=== PATIENT | female | born 2000 | race American Indian/Alaskan Native ===

== ENCOUNTER 2021-02-14 13:06 | Emergency (ER) | payer MEDICAID, OTHER ==
[2021-02-14 15:27] VITALS: BP 116/74
--- NOTE | 2021-02-14 16:00 | Emergency Department Report ---
ED Lower Extremity HPI - General Chief Complaint: Extremity Injury, Lower Stated Complaint: RTLEG PAINS Time Seen by Provider: 02/14/21 15:58 Source: patient Mode of arrival: Ambulatory Limitations: No Limitations - History of Present Illness Initial Comments: Patient is a 20-year-old female presents emergency room with complaints of right thigh pain that occurred yesterday. She states that a shelf was sticking out and she ran into it in a head against her right thigh. She states since then she has had some pain and bruising there. She is ambulatory. She denies any numbness or weakness. She denies ever injuring in the past. No past medical history. No allergies to medications. - Related Data Previous Rx's Medication Instructions Recorded Last Taken Type Ibuprofen [Motrin] 600 mg PO Q8H #30 tablet 05/20/18 Unknown Rx Ofloxacin 0.3% [Floxin 0.3% Otic] 1 applic OT BID #1 bottle 05/20/18 Unknown Rx Allergies Allergy/AdvReac Type Severity Reaction Status Date / Time No Known Allergies Allergy Unverified 05/20/18 10:08 ED Review of Systems ROS: Stated complaint: RTLEG PAINS Other details as noted in HPI Comment: All other systems reviewed and negative ED Past Medical Hx - Past Medical History Previous Medical History?: No - Social History Smoking Status: Never Smoker Substance Use Type: None - Medications Home Medications: Home Medications Medication Instructions Recorded Confirmed Last Taken Type Ibuprofen [Motrin] 600 mg PO Q8H #30 tablet 05/20/18 Unknown Rx Ofloxacin 0.3% [Floxin 0.3% Otic] 1 applic OT BID #1 bottle 05/20/18 Unknown Rx ED Physical Exam - General Limitations: No Limitations General appearance: alert, in no apparent distress - Head Head exam: Present: atraumatic, normocephalic - Eye Eye exam: Present: normal appearance - ENT ENT exam: Present: mucous membranes moist - Respiratory Respiratory exam: Absent: respiratory distress, accessory muscle use - Extremities Exam Extremities exam: Present: other (department editor: MONI melvin, there is a 3 cm area of ecchymosis present to the right lateral thigh, no bony ttp of the RLE, FROM of the RLE, no deformity, neurovascularly intact) - Neurological Exam Neurological exam: Present: alert, oriented X3 - Psychiatric Psychiatric exam: Present: normal affect, normal mood - Skin Skin exam: Present: warm, dry ED Course Vital Signs 02/14/21 15:26 Temperature 99.6 F Pulse Rate 76 Respiratory 18 Rate Blood Pressure 116/74 O2 Sat by Pulse 100 Oximetry ED Lower Extremity MDM - Medical Decision Making Patient is a 20-year-old female presents emergency room with complaints of right thigh pain that occurred yesterday. She states that a shelf was sticking out and she ran into it in a head against her right thigh. She states since then she has had some pain and bruising there. She is ambulatory. She denies any numbness or weakness. She denies ever injuring in the past. No past medical history. No allergies to medications. vitals are normal. on exam: department editor: MONI melvin, there is a 3 cm area of ecchymosis present to the right lateral thigh, no bony ttp of the RLE, FROM of the RLE, no deformity, neurovascularly intact. Examination appears consistent with thigh contusion. Advised patient May take Tylenol as needed for pain. Please use ice for 15 minutes at a time, rest, Epsom salt bath. Follow-up with your primary care doctor for reexamination. Return to emergency room for any new or worse symptoms. Critical care attestation.: If time is entered above; I have spent that time in minutes in the direct care of this critically ill patient, excluding procedure time. ED Disposition Clinical Impression: Contusion of right thigh Qualifiers: Encounter type: initial encounter Qualified Code(s): S70.11XA - Contusion of right thigh, initial encounter Disposition: -01 TO HOME OR SELFCARE Is pt being admited?: No Does the pt Need Aspirin: No Condition: Stable Instructions: Contusion, [id number] Additional Instructions: May take Tylenol as needed for pain. Please use ice for 15 minutes at a time, rest, Epsom salt bath. Follow-up with your primary care doctor for reexamination. Return to emergency room for any new or worse symptoms. Referrals: your, primary care doctor [Other] - 2-3 Days Forms: Work/School Release Form(ED) Time of Disposition: 16:00 Print Language: LUX[place]BOURGISH
== END 2021-02-14 16:55 | disposition home or self-care (01) ==
LOC: ED 13:06
DX: S70.11XA Contusion of right thigh, initial encounter (principal); Z79.899 Other long term (current) drug therapy; X58.XXXA Exposure to other specified factors, initial encounter; Y93.89 Activity, other specified; Y92.89 Other specified places as the place of occurrence of the external cause; Y99.8 Other external cause status
CPT/HCPCS: 99281

== ENCOUNTER 2022-03-18 16:32 | Emergency (ER) | payer SELFPAY ==
[2022-03-18] MEDS ORDERED: SODIUM CHLORIDE 0.9% 1000 ML 1,000 ML IV ONE ×2 (17:21→20:10)
[2022-03-18] MEDS ORDERED: ONDANSETRON 4 MG/2 ML INJ IV ONE (17:21)
[2022-03-18 17:22] LABS: Basophils % (Auto) 0.5 % (0.0-1.8); Hematocrit 37.8 % (30.3-42.9); Hemoglobin 12.5 gm/dl (10.1-14.3); Lymphocytes # (Auto) 0.8 K/mm3 (1.2-5.4); Lymphocytes % (Auto) 12.6 % (13.4-35.0); Mean Corpuscular HGB Conc 33 % (30-34); Mean Corpuscular Volume 86 fl (79-97); Monocytes # (Auto) 0.1 K/mm3 (0.0-0.8); Monocytes % (Auto) 1.6 % (0.0-7.3); Platelet Count 390 K/mm3 (140-440); Red Blood Count 4.42 M/mm3 (3.65-5.03); Red Cell Distribution Width 16.2 % (13.2-15.2)
--- NOTE | 2022-03-18 17:26 | Emergency Department Report ---
<CRISTIANO TINOCO - Last Filed: 03/18/22 21:09> ED Psych HPI - General Chief Complaint: Overdose Stated Complaint: SI Time Seen by Provider: 03/18/22 16:54 Source: patient Mode of arrival: Ambulatory - History of Present Illness Initial Comments: 22-year-old female complaining of nausea, vomiting, dry mouth, and sleepiness after an intentional overdose on greater than 60 pills (hydroxyzine, trazodone, and Wellbutrin) which she says she took last night at 10 PM. Patient states that she also took a large bottle of karina. Patient endorses depression and "just wanting to sleep". Patient has been symptomatic all day today. Patient has a history of self-inflicted wounds, but denies previous suicide attempt. - Related Data Previous Rx's Medication Instructions Recorded Last Taken Type Ibuprofen [Motrin] 600 mg PO Q8H #30 tablet 05/20/18 Unknown Rx Ofloxacin 0.3% [Floxin 0.3% Otic] 1 applic OT BID #1 bottle 05/20/18 Unknown Rx Allergies Allergy/AdvReac Type Severity Reaction Status Date / Time No Known Allergies Allergy Verified 03/18/22 17:53 ED Review of Systems Comment: All other systems reviewed and negative Constitutional: denies: chills, fever, weakness Eyes: denies: eye pain, eye discharge, vision change ENT: other (Dry mouth). denies: ear pain, throat pain Respiratory: denies: cough, shortness of breath, wheezing Cardiovascular: denies: chest pain, palpitations Endocrine: no symptoms reported, increased thirst Gastrointestinal: vomiting. denies: abdominal pain, nausea, diarrhea Genitourinary: denies: urgency, dysuria, discharge Musculoskeletal: denies: back pain, joint swelling, arthralgia Skin: denies: rash, lesions Neurological: denies: headache, weakness, paresthesias Psychiatric: denies: anxiety, depression Hematological/Lymphatic: denies: easy bleeding, easy bruising ED Past Medical Hx - Past Medical History Hx Psychiatric Treatment: Yes (depression, anxiety) - Social History Smoking Status: Never Smoker Substance Use Type: None - Medications Home Medications: Home Medications Medication Instructions Recorded Confirmed Last Taken Type Ibuprofen [Motrin] 600 mg PO Q8H #30 tablet 05/20/18 Unknown Rx Ofloxacin 0.3% [Floxin 0.3% Otic] 1 applic OT BID #1 bottle 05/20/18 Unknown Rx ED Physical Exam - General Limitations: No Limitations General appearance: alert, in no apparent distress - Head Head exam: Present: atraumatic, normocephalic - Eye Eye exam: Present: normal appearance, PERRL, EOMI - ENT ENT exam: Present: mucous membranes moist - Neck Neck exam: Present: normal inspection - Respiratory Respiratory exam: Present: normal lung sounds bilaterally. Absent: respiratory distress, rales, chest wall tenderness, decreased breath sounds - Cardiovascular Cardiovascular Exam: Present: normal rhythm, tachycardia. Absent: systolic murmur, diastolic murmur, rubs, gallop - GI/Abdominal GI/Abdominal exam: Present: soft, normal bowel sounds. Absent: distended, tenderness, guarding - Extremities Exam Extremities exam: Present: normal inspection - Back Exam Back exam: Present: normal inspection - Neurological Exam Neurological exam: Present: alert, oriented X3, CN II-XII intact, normal gait, motor sensory deficit - Psychiatric Psychiatric exam: Present: depressed, suicidal ideation. Absent: flat affect, manic, homicidal ideation - Skin Skin exam: Present: warm, dry, intact, normal color, other (Old, well-healed scars to left wrist from self-inflicted cutting wounds). Absent: rash ED Course - Reevaluation(s) Reevaluation #1: Patient is now spoke to poison control 1740 p.m. and got the following recommendations: TRAZODONE 6-8 HOURS OBS WELLBUTRIN 23 HOURS OBS CHECK ELECTROLYTES; ASA; TYLENOL; ETOH; UDS EKG- CHECK FOR QRS <100 (CALL BACK IF SO), QTC. REPEAT EKG IN 2 HOURS WATCH FOR DELAYED SEIZURES WITHIN 23 HOURS BENZO'S FOR TREMORS/DELIRIUM/AGITATION SUPPORTIVE CARE Reevaluation #2: 03/18/22 20:19 Patient will be medically cleared at 9 PM, as I will be the 23-hour colt from her taking the overdose. Patient's blood work is unremarkable, patient is still alert and oriented, there has been no seizure activity, and patient is able to tolerate p.o., now. Reevaluation #3: 03/18/22 21:09 Patient is still moderately tachycardic when she moves, so will be monitored for two more hours. Care endorsed to Dr. Ibrahim ED Medical Decision Making - Lab Data Result diagrams: 03/18/22 16:50 03/18/22 16:50 - EKG Data Rate: tachycardia (Tachycardic at 112, with no prolonged QT) - EKG Data Interpretation: nonspecific ST-T wave sampson - Differential Diagnosis Depression, suicide attempt, malingering ED Disposition Clinical Impression: Suicide attempt Overdose Qualifiers: Encounter type: initial encounter Injury intent: intentional self-harm Qualified Code(s): T50.902A - Poisoning by unspecified drugs, medicaments and biological substances, intentional self-harm, initial encounter Disposition: 30 STILL A PATIENT Is pt being admited?: No Does the pt Need Aspirin: No Condition: Stable <JELANI IBRAHIM - Last Filed: 03/18/22 22:57> ED Review of Systems ROS: Stated complaint: SI Other details as noted in HPI ED Course Vital Signs 03/18/22 03/18/22 03/18/22 16:41 17:10 17:30 Temperature Pulse Rate 126 H 112 H Respiratory 18 Rate Blood Pressure Blood Pressure 106/88 130/84 [Left] O2 Sat by Pulse 97 97 99 Oximetry 03/18/22 03/18/22 03/18/22 17:40 18:10 18:50 Temperature Pulse Rate 108 H 110 H 107 H Respiratory Rate Blood Pressure Blood Pressure 112/62 114/68 112/65 [Left] O2 Sat by Pulse 96 97 98 Oximetry 03/18/22 03/18/22 03/18/22 19:27 19:28 19:30 Temperature 98.3 F Pulse Rate 106 H 112 H 102 H Respiratory 17 18 29 H Rate Blood Pressure 129/87 Blood Pressure 129/87 [Left] O2 Sat by Pulse 98 100 96 Oximetry 03/18/22 03/18/22 03/18/22 19:46 20:00 20:16 Temperature Pulse Rate 103 H 122 H 101 H Respiratory 25 H 18 31 H Rate Blood Pressure 129/87 136/85 136/85 Blood Pressure [Left] O2 Sat by Pulse 97 98 99 Oximetry 03/18/22 03/18/22 03/18/22 20:30 20:46 21:00 Temperature Pulse Rate 100 H 104 H 118 H Respiratory 19 13 25 H Rate Blood Pressure 110/68 110/68 112/69 Blood Pressure [Left] O2 Sat by Pulse 97 99 99 Oximetry 03/18/22 03/18/22 03/18/22 21:16 21:30 21:46 Temperature Pulse Rate 111 H 106 H 118 H Respiratory 16 18 13 Rate Blood Pressure 112/69 136/90 136/90 Blood Pressure [Left] O2 Sat by Pulse 99 98 98 Oximetry 03/18/22 03/18/22 03/18/22 22:00 22:16 22:30 Temperature Pulse Rate 102 H 100 H 94 H Respiratory 19 8 L 13 Rate Blood Pressure 138/81 138/81 111/70 Blood Pressure [Left] O2 Sat by Pulse 98 98 98 Oximetry ED Medical Decision Making - Lab Data Result diagrams: 03/18/22 16:50 03/18/22 16:50 - Medical Decision Making pt is medically cleared at 11 pm for psych assessment . will move her to psych with hold area Critical care attestation.: If time is entered above; I have spent that time in minutes in the direct care of this critically ill patient, excluding procedure time.
[2022-03-18 17:32] LABS: Alanine Aminotransferase 14 units/L (7-56); BUN/Creatinine Ratio 14; Blood Urea Nitrogen 13 mg/dL (7-17); Calcium 9.4 mg/dL (8.4-10.2); Hemolysis Index 8
[2022-03-18 20:14] LABS: Color,Urine Yellow (Yellow)
[2022-03-18 20:15] LABS: Amphetamine Screen,Urine Negative; Benzodiazepines Screen,Urine Negative; Cannabinoid Screen,Urine Negative; Cocaine Screen,Urine Negative; Methadone Screen,Urine Negative; Opiate Screen,Urine Negative
[2022-03-18 20:19] LABS: Mucus,Urine 1+ /HPF
--- NOTE | 2022-03-19 09:10 | Consultation ---
History of Present Illness - Reason for Consult Consult date: 03/19/22 Reason for consult: suicide attempt - History of Present Psychiatric Illness The patient was seen today. She presented to the ER after an intentional overdose of what she says was 60 pills. The patient says she was drinking and got into an argument with her mom. She says "I took it to the point of no return. My mom called the polite." The patient says she had already gone in the bathroom and took all the pills prior to the police showing up. She says "I just wanted to go to sleep and not deal with it." The patient also endorses auditory hallucinations. She says "I hear sounds and things that are not there." She says "I also hear my mother's voice." The patient says she has a history of anxiety, depression, and insomnia. She says she takes wellbutrin, and vistaril. She says she's never had a suicide attempt in the past, but states she is a cutter. REVIEW OF SYSTEMS Constitutional: Negative for weight loss ENT: Negative for stridor Respiratory: Negative for cough or hemoptysis All other systems reviewed and are negative MENTAL STATUS EXAMINATION General Appearance and Behavior: Age appropriate, good hygiene, cooperative Cooperation: cooperative Psychomotor Behavior: Psychomotor normal, Mood: Depressed Affect and affective range: congruent with stated mood Thought Process: goal directed Thought Content: hallucinations Speech: normal rate and volume Suicidal Ideation: Yes Homicidal Ideation: Denies Hallucinations: Yes Delusions: None elicited Impulse Control: Normal Insight and Judgment: Limited Memory: Limited Attention:Attentive Orientation: Aox2 Assessment and Plan (1) Major Depressive Disorder (2) Intentional Overdose Treatment Plan 1013 Seroquel 50mg po BID Prozac 20mg po daily Risks, benefits and alternatives of medications discussed with the patient, rosa maria tam answered and consent obtained from patient. PSYCHOTHERAPY: Supportive psychotherapy provided MEDICAL: Per primary team DELIRIUM PRECAUTIONS: Please re-orient patient frequently, keep lights on during the day, and minimize benzodiazepines and opiates as these medications could worsen patient's confusion. SUPERVISOR BRAIDING: Defer to primary DISPOSITION: Recommend acute inpatient psychiatric hospitalization at this time. FOLLOW-UP: Will follow. Thank you for the consult. Please contact with any questions and/or concerns Case discussed with Dr. Astorga who agrees with current disposition Medications and Allergies Allergies Allergy/AdvReac Type Severity Reaction Status Date / Time No Known Allergies Allergy Verified 03/18/22 17:53 Home Medications Medication Instructions Recorded Confirmed Last Taken Type Ibuprofen [Motrin] 600 mg PO Q8H #30 tablet 05/20/18 Unknown Rx Ofloxacin 0.3% [Floxin 0.3% Otic] 1 applic OT BID #1 bottle 05/20/18 Unknown Rx Mental Status Exam - Vital signs Last Vital Signs Temp 98.2 F 03/19/22 08:32 Pulse 98 H 03/19/22 08:32 Resp 16 03/19/22 08:32 BP 127/78 03/19/22 08:32 Pulse Ox 98 03/19/22 08:37 Results Result Diagrams: 03/18/22 16:50 03/18/22 16:50 Abnormal lab results 03/18/22 03/18/22 03/18/22 Range/Units 16:50 16:50 16:50 RDW 16.2 H (13.2-15.2) % Lymph % (Auto) 12.6 L (13.4-35.0) % Lymph # (Auto) 0.8 L (1.2-5.4) K/mm3 Seg Neutrophils % 85.3 H (40.0-70.0) % Carbon Dioxide 20 L (22-30) mmol/L Glucose 119 H (65-100) mg/dL Salicylates < 0.3 L (2.8-20.0) mg/dL Acetaminophen (10.0-30.0) ug/mL 03/18/22 Range/Units 16:50 RDW (13.2-15.2) % Lymph % (Auto) (13.4-35.0) % Lymph # (Auto) (1.2-5.4) K/mm3 Seg Neutrophils % (40.0-70.0) % Carbon Dioxide (22-30) mmol/L Glucose (65-100) mg/dL Salicylates (2.8-20.0) mg/dL Acetaminophen 5.0 L (10.0-30.0) ug/mL All other labs normal.
[2022-03-19] MEDS ORDERED: FLUoxetine 20 MG CAP PO SCH (10:00)
[2022-03-19] MEDS: QUEtiapine 25 MG TAB PO SCH ×2 (10:04→22:17)
--- NOTE | 2022-03-19 10:04 | Electrocardiograph Report ---
[facility] Test Date: 2022-03-18 Test Time: 19:17:47 Pat Name: DOMINIC POLLACK Department: Room: Gender: F Manager Membership: MELISSA Driver : [id number] Requested By: CRISTIANO TINOCO Order Number: [id number] Reading MD: Diaz Christiansen Measurements Intervals [place] Rate: 112 P: 71 LA: 174 QRS: 68 QRSD: 72 T: -6 QT: 344 QTc: 470 Interpretive Statements Sinus tachycardia Borderline T abnormalities, diffuse leads Compared to ECG 03/18/2022 17:16:47 No significant changes Electronically Signed On 03-19-2022 10:04:41 EDT by Diaz Christiansen
--- NOTE | 2022-03-19 10:04 | Electrocardiograph Report ---
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
--- NOTE | 2022-03-19 13:33 | Event Note ---
Date: 03/19/22 The patient was evaluated in the emergency department for symptoms described in the history of present illness. He/she was evaluated in the context of the global COVID-19 pandemic, which necessitated consideration that the patient might be at risk for infection with the virus that causes COVID-19. Institutional protocols and algorithms that pertain to the evaluation of patients at risk for COVID-19 are in a state of rapid change based on information released by regulatory bodies including the CDC and federal and state organizations. These policies and algorithms were followed during the patient's care in the emergency department. Please note that these policies, procedures and recommendations changed on a rapid basis. Laboratory studies, vital signs, nursing documentation, ER documentation, and psychiatric documentation are reviewed and appreciated. Nursing team reports no acute events this morning or concerns. The patient is awake and ambulating and does not appear to be in any acute distress. The patient was deemed medically suitable for psychiatric disposition and placement during her initial ER evaluation. The patient continues to remain medically suitable for psychiatric placement and disposition. sHe is currently pending psychiatric placement. Vital Signs 03/18/22 03/18/22 03/18/22 16:41 17:10 17:30 Temperature Pulse Rate 126 H 112 H Respiratory 18 Rate Blood Pressure Blood Pressure 106/88 130/84 [Left] O2 Sat by Pulse 97 97 99 Oximetry 03/18/22 03/18/22 03/18/22 17:40 18:10 18:50 Temperature Pulse Rate 108 H 110 H 107 H Respiratory Rate Blood Pressure Blood Pressure 112/62 114/68 112/65 [Left] O2 Sat by Pulse 96 97 98 Oximetry 03/18/22 03/18/22 03/18/22 19:27 19:28 19:30 Temperature 98.3 F Pulse Rate 106 H 112 H 102 H Respiratory 17 18 29 H Rate Blood Pressure 129/87 Blood Pressure 129/87 [Left] O2 Sat by Pulse 98 100 96 Oximetry 03/18/22 03/18/22 03/18/22 19:46 20:00 20:16 Temperature Pulse Rate 103 H 122 H 101 H Respiratory 25 H 18 31 H Rate Blood Pressure 129/87 136/85 136/85 Blood Pressure [Left] O2 Sat by Pulse 97 98 99 Oximetry 03/18/22 03/18/22 03/18/22 20:30 20:46 21:00 Temperature Pulse Rate 100 H 104 H 118 H Respiratory 19 13 25 H Rate Blood Pressure 110/68 110/68 112/69 Blood Pressure [Left] O2 Sat by Pulse 97 99 99 Oximetry 03/18/22 03/18/22 03/18/22 21:16 21:30 21:46 Temperature Pulse Rate 111 H 106 H 118 H Respiratory 16 18 13 Rate Blood Pressure 112/69 136/90 136/90 Blood Pressure [Left] O2 Sat by Pulse 99 98 98 Oximetry 03/18/22 03/18/22 03/18/22 22:00 22:16 22:30 Temperature Pulse Rate 102 H 100 H 94 H Respiratory 19 8 L 13 Rate Blood Pressure 138/81 138/81 111/70 Blood Pressure [Left] O2 Sat by Pulse 98 98 98 Oximetry 03/18/22 03/18/22 03/19/22 22:46 23:00 08:32 Temperature 98.2 F Pulse Rate 101 H 99 H 98 H Respiratory 16 16 16 Rate Blood Pressure 111/70 127/73 Blood Pressure 127/78 [Left] O2 Sat by Pulse 99 98 100 Oximetry 03/19/22 08:37 Temperature Pulse Rate Respiratory Rate Blood Pressure Blood Pressure [Left] O2 Sat by Pulse 98 Oximetry Temp Pulse Resp BP Pulse Ox 98.2 F 98 H 16 127/78 98 03/19/22 08:32 03/19/22 08:32 03/19/22 08:32 03/19/22 08:32 03/19/22 08:37 Lab Results 03/18/22 03/18/22 03/18/22 Range/Units 16:50 16:50 16:50 WBC 6.1 (4.5-11.0) K/mm3 RBC 4.42 (3.65-5.03) M/mm3 Hgb 12.5 (10.1-14.3) gm/dl Hct 37.8 (30.3-42.9) % MCV 86 (79-97) fl MCH 28 (28-32) pg MCHC 33 (30-34) % RDW 16.2 H (13.2-15.2) % Plt Count 390 (140-440) K/mm3 Lymph % (Auto) 12.6 L (13.4-35.0) % [place] % (Auto) 1.6 (0.0-7.3) % Eos % (Auto) 0.0 (0.0-4.3) % Baso % (Auto) 0.5 (0.0-1.8) % Lymph # (Auto) 0.8 L (1.2-5.4) K/mm3 [place] # (Auto) 0.1 (0.0-0.8) K/mm3 Eos # (Auto) 0.0 (0.0-0.4) K/mm3 Baso # (Auto) 0.0 (0.0-0.1) K/mm3 Seg Neutrophils % 85.3 H (40.0-70.0) % Seg Neutrophils # 5.2 (1.8-7.7) K/mm3 Sodium 137 (137-145) mmol/L Potassium 4.3 (3.6-5.0) mmol/L Chloride 100.5 (98-107) mmol/L Carbon Dioxide 20 L (22-30) mmol/L Anion Gap 21 mmol/L BUN 13 (7-17) mg/dL Creatinine 0.9 (0.6-1.2) mg/dL Estimated GFR > 60 ml/min BUN/Creatinine Ratio 14 % Glucose 119 H (65-100) mg/dL Calcium 9.4 (8.4-10.2) mg/dL Total Bilirubin 0.70 (0.1-1.2) mg/dL AST 21 (5-40) units/L ALT 14 (7-56) units/L Alkaline Phosphatase 70 (35-129) units/L Total Protein 7.6 (6.3-8.2) g/dL Albumin 5.0 (3.9-5) g/dL Albumin/Globulin Ratio 1.9 % HCG, Qual (Negative) Urine Color (Yellow) Urine Turbidity (Clear) Specific [place] (Man) (1.003-1.030) Ur Protein (Man) (Negative) mg/dL Ur Ketones (Man) (Negative) Ur Nitrite (Man) (Negative) Urine Bilirubin (Man) (Negative) Leukocyte Esterase (Man) (Negative) Urine WBC (Auto) (0.0-6.0) /HPF Urine RBC (Auto) (0.0-6.0) /HPF U Epithel Cells (Auto) (0-13.0) /HPF Urine RBC (Manual) (Negative) Urine Mucus /HPF Salicylates < 0.3 L (2.8-20.0) mg/dL Urine Opiates Screen Urine Methadone Screen Acetaminophen (10.0-30.0) ug/mL Ur Barbiturates Screen Ur Phencyclidine Scrn Ur Amphetamines Screen U Benzodiazepines Scrn Urine Cocaine Screen U Marijuana (THC) Screen Drugs of Abuse Note Plasma/Serum Alcohol (0-0.07) % SARS-CoV-2 (PCR) (Negative) 03/18/22 03/18/22 03/18/22 Range/Units 16:50 16:50 16:50 WBC (4.5-11.0) K/mm3 RBC (3.65-5.03) M/mm3 Hgb (10.1-14.3) gm/dl Hct (30.3-42.9) % MCV (79-97) fl MCH (28-32) pg MCHC (30-34) % RDW (13.2-15.2) % Plt Count (140-440) K/mm3 Lymph % (Auto) (13.4-35.0) % [place] % (Auto) (0.0-7.3) % Eos % (Auto) (0.0-4.3) % Baso % (Auto) (0.0-1.8) % Lymph # (Auto) (1.2-5.4) K/mm3 [place] # (Auto) (0.0-0.8) K/mm3 Eos # (Auto) (0.0-0.4) K/mm3 Baso # (Auto) (0.0-0.1) K/mm3 Seg Neutrophils % (40.0-70.0) % Seg Neutrophils # (1.8-7.7) K/mm3 Sodium (137-145) mmol/L Potassium (3.6-5.0) mmol/L Chloride (98-107) mmol/L Carbon Dioxide (22-30) mmol/L Anion Gap mmol/L BUN (7-17) mg/dL Creatinine (0.6-1.2) mg/dL Estimated GFR ml/min BUN/Creatinine Ratio % Glucose (65-100) mg/dL Calcium (8.4-10.2) mg/dL Total Bilirubin (0.1-1.2) mg/dL AST (5-40) units/L ALT (7-56) units/L Alkaline Phosphatase (35-129) units/L Total Protein (6.3-8.2) g/dL Albumin (3.9-5) g/dL Albumin/Globulin Ratio % HCG, Qual Negative (Negative) Urine Color (Yellow) Urine Turbidity (Clear) Specific [place] (Man) (1.003-1.030) Ur Protein (Man) (Negative) mg/dL Ur Ketones (Man) (Negative) Ur Nitrite (Man) (Negative) Urine Bilirubin (Man) (Negative) Leukocyte Esterase (Man) (Negative) Urine WBC (Auto) (0.0-6.0) /HPF Urine RBC (Auto) (0.0-6.0) /HPF U Epithel Cells (Auto) (0-13.0) /HPF Urine RBC (Manual) (Negative) Urine Mucus /HPF Salicylates (2.8-20.0) mg/dL Urine Opiates Screen Urine Methadone Screen Acetaminophen 5.0 L (10.0-30.0) ug/mL Ur Barbiturates Screen Ur Phencyclidine Scrn Ur Amphetamines Screen U Benzodiazepines Scrn Urine Cocaine Screen U Marijuana (THC) Screen Drugs of Abuse Note Plasma/Serum Alcohol < 0.01 (0-0.07) % SARS-CoV-2 (PCR) (Negative) 03/18/22 03/18/22 03/19/22 Range/Units 19:56 19:56 08:05 WBC (4.5-11.0) K/mm3 RBC (3.65-5.03) M/mm3 Hgb (10.1-14.3) gm/dl Hct (30.3-42.9) % MCV (79-97) fl MCH (28-32) pg MCHC (30-34) % RDW (13.2-15.2) % Plt Count (140-440) K/mm3 Lymph % (Auto) (13.4-35.0) % [place] % (Auto) (0.0-7.3) % Eos % (Auto) (0.0-4.3) % Baso % (Auto) (0.0-1.8) % Lymph # (Auto) (1.2-5.4) K/mm3 [place] # (Auto) (0.0-0.8) K/mm3 Eos # (Auto) (0.0-0.4) K/mm3 Baso # (Auto) (0.0-0.1) K/mm3 Seg Neutrophils % (40.0-70.0) % Seg Neutrophils # (1.8-7.7) K/mm3 Sodium (137-145) mmol/L Potassium (3.6-5.0) mmol/L Chloride (98-107) mmol/L Carbon Dioxide (22-30) mmol/L Anion Gap mmol/L BUN (7-17) mg/dL Creatinine (0.6-1.2) mg/dL Estimated GFR ml/min BUN/Creatinine Ratio % Glucose (65-100) mg/dL Calcium (8.4-10.2) mg/dL Total Bilirubin (0.1-1.2) mg/dL AST (5-40) units/L ALT (7-56) units/L Alkaline Phosphatase (35-129) units/L Total Protein (6.3-8.2) g/dL Albumin (3.9-5) g/dL Albumin/Globulin Ratio % HCG, Qual (Negative) Urine Color Yellow (Yellow) Urine Turbidity Clear (Clear) Specific [place] (Man) 1.010 (1.003-1.030) Ur Protein (Man) <30 mg dl (Negative) mg/dL Ur Ketones (Man) Negative (Negative) Ur Nitrite (Man) Negative (Negative) Urine Bilirubin (Man) Negative (Negative) Leukocyte Esterase (Man) Negative (Negative) Urine WBC (Auto) 2.0 (0.0-6.0) /HPF Urine RBC (Auto) 2.0 (0.0-6.0) /HPF U Epithel Cells (Auto) 3.0 (0-13.0) /HPF Urine RBC (Manual) Negative (Negative) Urine Mucus 1+ /HPF Salicylates (2.8-20.0) mg/dL Urine Opiates Screen Negative Urine Methadone Screen Negative Acetaminophen (10.0-30.0) ug/mL Ur Barbiturates Screen Negative Ur Phencyclidine Scrn Negative Ur Amphetamines Screen Negative U Benzodiazepines Scrn Negative Urine Cocaine Screen Negative U Marijuana (THC) Screen Negative Drugs of Abuse Note Disclamer Plasma/Serum Alcohol (0-0.07) % SARS-CoV-2 (PCR) Negative (Negative)
--- NOTE | 2022-03-20 09:48 | Progress Note ---
Subjective - Reason for Consult Consult date: 03/20/22 Reason for consult: psychosis - Chief Complaint Chief complaint: The patient was seen today. She endorses feeling better, but still very much depressed. She says she's tried prozac in the past with no success. The patient says she could not sleep last night because she "kept getting inside her head." She still endorses feeling suicidal. She verbalizes hearing "noises." REVIEW OF SYSTEMS Constitutional: Negative for weight loss ENT: Negative for stridor Respiratory: Negative for cough or hemoptysis All other systems reviewed and are negative MENTAL STATUS EXAMINATION General Appearance and Behavior: Age appropriate, good hygiene, cooperative Cooperation: cooperative Psychomotor Behavior: Psychomotor normal, Mood: Depressed Affect and affective range: congruent with stated mood Thought Process: goal directed Thought Content: hallucinations Speech: normal rate and volume Suicidal Ideation: Yes Homicidal Ideation: Denies Hallucinations: Yes Delusions: None elicited Impulse Control: Normal Insight and Judgment: Limited Memory: Limited Attention: Attentive Orientation: A/o x 3 Assessment and Plan (1) Major Depressive Disorder (2) Intentional Overdose Treatment Plan 1013 Increase Seroquel 100mg po BID Start Effexor 37.5mg po daily d/c Prozac 20mg po daily Risks, benefits and alternatives of medications discussed with the patient, questions answered and consent obtained from patient. PSYCHOTHERAPY: Supportive psychotherapy provided MEDICAL: Per primary team DELIRIUM PRECAUTIONS: Please re-orient patient frequently, keep lights on during the day, and minimize benzodiazepines and opiates as these medications could worsen patient's confusion. CREDIT UNION FIELD EXAMINER: Defer to primary DISPOSITION: Recommend acute inpatient psychiatric hospitalization at this time. FOLLOW-UP: Will follow. Thank you for the consult. Please contact with any questions and/or concerns Case discussed with Dr. Astorga who agrees with current disposition Mental Status Exam - Vital signs Last Vital Signs Temp 98.8 F 03/19/22 20:19 Pulse 84 03/19/22 20:19 Resp 16 03/19/22 20:19 BP 148/90 03/19/22 20:19 Pulse Ox 96 03/19/22 20:19
[2022-03-20] MEDS ORDERED: QUEtiapine 100 MG TAB PO SCH (10:00)
[2022-03-20] MEDS ORDERED: VENLAFAXINE 37.5 MG TAB PO SCH (10:00)
[2022-03-20 10:11] VITALS: BP 133/83
--- NOTE | 2022-03-20 12:20 | Event Note ---
Date: 03/20/22 S: No events reported overnight O: Vital Signs - 8 hr 03/20/22 10:10 Temperature 98.6 F Pulse Rate 88 Blood Pressure 133/83 [Right] A: Major depressive disorder/intentional overdose P: 1013/awaiting inpatient psych
== END 2022-03-20 20:55 | disposition still patient (30) ==
LOC: ED 16:32 → EEVIPCON 16:32 → ED 03-20 20:55
DX: T43.592A Poisoning by other antipsychotics and neuroleptics, intentional self-harm, initial encounter (principal); T43.212A Poisoning by selective serotonin and norepinephrine reuptake inhibitors, intentional self-harm, initial encounter; Z20.822 Contact with and (suspected) exposure to COVID-19; T43.292A Poisoning by other antidepressants, intentional self-harm, initial encounter; R11.2 Nausea with vomiting, unspecified; R45.851 Suicidal ideations; Z79.899 Other long term (current) drug therapy; Y92.89 Other specified places as the place of occurrence of the external cause
CPT/HCPCS: 36415; 80053; 80307; 81001; 84703; 85025; 93005; 96361; 96374; 99285; J2405; J7030; U0003; 80320; G0480